=== PATIENT | male | born 1950 | race Caucasian/White ===

== ENCOUNTER 2017-03-01 06:06 | Inpatient (IN) | payer MEDICARE ==
[~2017-03-01] VITALS: Ht 185.4 cm; Wt 126.0 kg
[2017-03-01] VITALS (10 sets, daily range): BP systolic 112–173; BP diastolic 55–84; PULSE 56–74; RESP 15–24; TEMP 98.1–98.8; O2SAT 98–100
[2017-03-01] MEDS ORDERED: DEPA500T PO (06:15)
[2017-03-01] MEDS ORDERED: DULC5TAB PO (06:15)
--- NOTE | 2017-03-01 06:24 | PD ---
HPI . Head injury Chief Complaint: Seizure Time Seen by Provider: 06:17 Travel History International Travel<30 days: No Contact w/Intl Traveler<30days: No Traveled to known affect area: No History of Present Illness HPI Patient was brought to us by [facility] after possible head injury. Patient states that he was sitting on a bench and apparently fell off a bench striking his head. He states that he is perfectly fine and is ready to go home. This patient does have a seizure disorder. [id number]: Head QUALITY: No pain SEVERITY: 0/10 DURATION: Just prior to arrival ASSOCIATED SYMPTOMS: No associated symptoms PFSH Past Medical History Autoimmune Disease: No Blood Disorders: No Depression: Yes Cancer: No Cardiovascular Problems: No Endocrine: No Genitourinary: No Musculoskeletal: No Neurologic: No Psychiatric: Yes Respiratory: No Social History Alcohol Use: No Tobacco Use: Yes (1 ppd) Substance Use: No Allergies-Medications (Allergen,Severity, Reaction): Coded Allergies: Bactrim (Verified Allergy, Severe, 03/14/05) Sulfa (Verified Allergy, Severe, 07/24/03) Trimethoprim (Verified Allergy, Severe, 07/24/03) Reported Meds & Prescriptions Reported Meds & Active Scripts Active Reported Dulcolax DR (Bisacodyl) 5 Mg Tabdr Unknown Dose PO DAILY PRN Depakote DR (Divalproex Sodium) 500 Mg Tabdr 500 Mg PO BID Review of Systems Except as stated in HPI: all other systems reviewed are Neg Neurologic: Positive: Syncope Physical Exam Narrative GENERAL: Patient is awake and alert and fully oriented. He does not seem postictal. SKIN: Warm and dry. HEAD: Atraumatic. Normocephalic. He has what appears to be an abrasion/ contusion of the right eye. EYES: Pupils equal and round. Extraocular movements are intact. He has lid lag on the left. ENT: No nasal bleeding or discharge. Mucous membranes pink and moist. NECK: Trachea midline. C-spine is nontender. Full range of motion. CARDIOVASCULAR: Regular rate and rhythm. RESPIRATORY: No accessory muscle use. MUSCULOSKELETAL: No obvious deformities. No edema. NEUROLOGICAL: Awake and alert. No obvious cranial nerve deficits. Motor grossly within normal limits. Normal speech. PSYCHIATRIC: Appropriate mood and affect; insight and judgment normal. Data Data Last Documented VS Vital Signs Date Time Temp Pulse Resp B/P Pulse Ox O2 Delivery O2 Flow Rate FiO2 4/16/17 06:59 73 21 173/84 100 Partial Rebreather 03/01/17 06:[address] Brain W/O Iv Contrast(Rout) (03/01/17 06:18) Phenytoin (Dilantin) (03/01/17 06:35) Lorazepam Inj (Ativan Inj) (03/01/17 06:45) Complete Blood Count With Diff (03/01/17 06:37) Basic Metabolic Panel (Bmp) (03/01/17 06:37) Alcohol (Ethanol) (03/01/17 06:37) Drug Screen, Random Urine (03/01/17 06:37) Lorazepam Inj (Ativan Inj) (03/01/17 06:37) Labs Laboratory Tests Test 03/01/17 06:41 White Blood Count 7.9 TH/MM3 Red Blood Count 3.94 MIL/MM3 Hemoglobin 13.0 GM/DL Hematocrit 38.5 % Mean Corpuscular Volume 97.6 FL Mean Corpuscular Hemoglobin 32.9 PG Mean Corpuscular Hemoglobin 33.7 % Concent Red Cell Distribution Width 13.6 % Platelet Count 196 TH/MM3 Mean Platelet Volume 7.9 FL Neutrophils (%) (Auto) 65.0 % Lymphocytes (%) (Auto) 17.1 % Monocytes (%) (Auto) 16.8 % Eosinophils (%) (Auto) 0.8 % Basophils (%) (Auto) 0.3 % Neutrophils # (Auto) 5.1 TH/MM3 Lymphocytes # (Auto) 1.3 TH/MM3 Monocytes # (Auto) 1.3 TH/MM3 Eosinophils # (Auto) 0.1 TH/MM3 Basophils # (Auto) 0.0 TH/MM3 CBC Comment DIFF FINAL Differential Comment MDM Medical Decision Making Medical Screen Exam Complete: Yes Emergency Medical Condition: Yes Differential Diagnosis My differential diagnosis of head trauma includes but is not limited to scalp contusion, concussion, intracerebral hemorrhage. Narrative Course Patient presents by [facility] after reportedly falling and striking his head. The patient has no complaints. 6:40 AM The patient just had a 45 second long generalized tonic clonic seizure. He has been medicated with Ativan, 2 mg IV. His care will be turned over to the oncoming physician at 7 AM. Diagnosis Primary Impression: Seizure Tori Hdz MD Mar 01, 2017 06:24
[2017-03-01] MEDS ORDERED: LORazepam 2 MG/ML VIAL ONE (06:37)
[2017-03-01] MEDS ORDERED: LORazepam 2 MG/ML VIAL IV PUSH ONE ×2 (06:45→11:30)
[2017-03-01 07:05] LABS: AUTOMATED NEUTROPHIL # 5.1 TH/MM3 (1.8-7.7); BASOPHIL % 0.3 % (0.0-2.0); EOSINOPHIL # 0.1 TH/MM3 (0-0.4); EOSINOPHIL % 0.8 % (0.0-4.0); HEMATOCRIT 38.5 % (39.0-51.0); HEMO FLAGS DIFF FINAL; LYMPH % 17.1 % (9.0-44.0); LYMPHOCYTE # 1.3 TH/MM3 (1.0-4.8); MEAN CELL VOLUME 97.6 FL (80.0-100.0); MEAN CORPUSCULAR HEMOGLOBIN 32.9 PG (27.0-34.0); MEAN CORPUSCULAR HGB CONC 33.7 % (32.0-36.0); MONO % 16.8 % (0.0-8.0); PLATELET COUNT 196 TH/MM3 (150-450); RED BLOOD COUNT 3.94 MIL/MM3 (4.50-5.90); RED CELL DISTRIBUTION WIDTH 13.6 % (11.6-17.2); WHITE BLOOD COUNT 7.9 TH/MM3 (4.0-11.0)
[2017-03-01 07:22] LABS: ANION GAP 7 MEQ/L (5-15); BLOOD UREA NITROGEN 27 MG/DL (7-18); CHLORIDE 102 MEQ/L (98-107); GLOMERULAR FILTRATION RATE 60 ML/MIN (>89); POTASSIUM 4.1 MEQ/L (3.5-5.1); SODIUM (NA) 137 MEQ/L (136-145)
--- NOTE | 2017-03-01 07:37 | RADRPT ---
EXAM DATE/TIME: 03/01/2017 07:07 [place] COMPARISON: No previous studies available for comparison. INDICATIONS : Seizure. RADIATION DOSE: 69.15 CTDIvol (mGy) MEDICAL HISTORY : None SURGICAL HISTORY : None. ENCOUNTER: Initial ACUITY: 1 day PAIN SCALE: 0/10 LOCATION: cranial TECHNIQUE: Multiple contiguous axial images were obtained of the head. Using automated exposure control and adj ustment of the mA and/or kV according to patient size, radiation dose was kept as low as reasonably a chievable to obtain optimal diagnostic quality images. FINDINGS: There is no evidence for intracranial hemorrhage, mass effect, mass lesions, edema, or extra-axial fl uid collections. The visualized bony structures appear intact. The ventricles are normal size for t he patient's age. There are no signs of acute infarction for technique. There is a mucus retention c yst in the left maxillary sinus. CONCLUSION: Unremarkable study. Shaniqua Mauricio MD on March 01, 2017 at 7:34 Board Certified Radiologist. This report was verified electronically.
--- NOTE | 2017-03-01 08:06 | PD ---
Data Data Last Documented VS Vital Signs Date Time Temp Pulse Resp B/P Pulse Ox O2 Delivery O2 Flow Rate FiO2 03/01/17 06:59 73 21 173/84 100 Partial Rebreather 03/01/17 06:[address] Brain W/O Iv Contrast(Rout) (03/01/17 06:18) Phenytoin (Dilantin) (03/01/17 06:35) Lorazepam Inj (Ativan Inj) (03/01/17 06:45) Complete Blood Count With Diff (03/01/17 06:37) Basic Metabolic Panel (Bmp) (03/01/17 06:37) Alcohol (Ethanol) (03/01/17 06:37) Drug Screen, Random Urine (03/01/17 06:37) Lorazepam Inj (Ativan Inj) (03/01/17 06:37) Admit Order (Ed Use Only) (03/01/17 07:32) Labs Laboratory Tests Test 03/01/17 06:41 White Blood Count 7.9 TH/MM3 Red Blood Count 3.94 MIL/MM3 Hemoglobin 13.0 GM/DL Hematocrit 38.5 % Mean Corpuscular Volume 97.6 FL Mean Corpuscular Hemoglobin 32.9 PG Mean Corpuscular Hemoglobin 33.7 % Concent Red Cell Distribution Width 13.6 % Platelet Count 196 TH/MM3 Mean Platelet Volume 7.9 FL Neutrophils (%) (Auto) 65.0 % Lymphocytes (%) (Auto) 17.1 % Monocytes (%) (Auto) 16.8 % Eosinophils (%) (Auto) 0.8 % Basophils (%) (Auto) 0.3 % Neutrophils # (Auto) 5.1 TH/MM3 Lymphocytes # (Auto) 1.3 TH/MM3 Monocytes # (Auto) 1.3 TH/MM3 Eosinophils # (Auto) 0.1 TH/MM3 Basophils # (Auto) 0.0 TH/MM3 CBC Comment DIFF FINAL Differential Comment Sodium Level 137 MEQ/L Potassium Level 4.1 MEQ/L Chloride Level 102 MEQ/L Carbon Dioxide Level 28.0 MEQ/L Anion Gap 7 MEQ/L Blood Urea Nitrogen 27 MG/DL Creatinine 1.22 MG/DL Estimat Glomerular Filtration 60 ML/MIN Rate Random Glucose 90 MG/DL Calcium Level 9.6 MG/DL Phenytoin (Dilantin) Level LESS THAN 0.4 MCG/ML Ethyl Alcohol Level LESS THAN 3 MG/DL [facility] Medical Record Reviewed: Yes Supervised Visit with XENIA: No Narrative Course CBC & BMP Diagram 03/01/17 06:41 Phenytoin < 0.[address] is unremarkable Please refer to the outgoing physicians documentation. The patient had a seizure and was brought to the ER. A second seizure occurred lasting 45 seconds with generalized clonic tonic activity observed. He received 2 mg Ativan and has since had no seizure activity. He'll be admitted to the hospitalist service, [facility], under Dr Mcadams. His Dilantin level is 0.4. Cerebyx ordered. Mild prerenal azotemia observed; 1L NS ordered. At approximately 9:10 AM the patient was evaluated. He was snoring loudly. Gag reflex was intact. His dentures were removed. He opened his eyes and stated, "I'm ok." Diagnosis Primary Impression: Seizure Additional Impression: Subtherapeutic serum dilantin level Admitting Information Admitting Physician Requests: Admit Yanick Pollard MD Mar 01, 2017 08:06
[2017-03-01] MEDS ORDERED: SODIUM CHLORIDE 0.9% FLUSH 10 ML FLUSH IV FLUSH PRN (08:30)
[2017-03-01] MEDS ORDERED: ONDANSETRON HCL 4 MG/2 ML VIAL IVP PRN (08:30)
[2017-03-01] MEDS ORDERED: ACETAMINOPHEN 325 MG TAB PO PRN ×3 (08:30→11:00)
[2017-03-01] MEDS ORDERED: LORazepam 2 MG/ML VIAL IV PRN (08:30)
[2017-03-01] MEDS ORDERED: NALOXONE HCL 0.4 MG/ML AMP IV PRN (08:30)
[2017-03-01] MEDS: SODIUM CHLORIDE 0.9% FLUSH 10 ML FLUSH IV FLUSH SCH ×2 (08:55→21:00)
[2017-03-01] MEDS ORDERED: SODIUM CHLOR 0.9% 1000 ML INJ 1,000 ML IV ONE (09:00)
[2017-03-01] MEDS ORDERED: FOSPHENYTOIN INJ 1,000 MGPE in SODIUM CHLORIDE 0.9% INJ 50 ML IV ONE (09:15)
--- NOTE | 2017-03-01 10:45 | HHI.HP ---
[facility] Unknown Admission Diagnosis Recurrent Seizure Diagnoses: (1) Breakthrough seizure (2) Benign hypertension (3) Schizoaffective disorder Chief Complaint: Altered mental status change and seizure activity Travel History International Travel<30 Days: No Contact w/Intl Traveler <30 Da: No Traveled to Known Affected Are: No History of Present Illness 66-year-old male with a history of seizure disorder, hypertension, schizoaffective disorder and polysubstance abuse was brought to the ED for evaluation of whithness seizure activity 2 and while in emergency department patient was also observed to have another seizure. During my exam patient was alter and unable to provide any history. Per EMR report:" Patient was brought to us by [facility] after possible head injury. Patient states that he was sitting on a bench and apparently fell off a bench striking his head. He states that he is perfectly fine and is ready to go home. " Review of Systems ROS Limitations: Altered Mental Status Past Family Social History Past Medical History Seizure disorder Hypertension Schizoaffective disorder Bipolar disorder GERD Substance abuse Past Surgical History Hemorrhoidectomy Reported Medications Dulcolax DR (Bisacodyl) 5 Mg Tabdr Unknown Dose PO DAILY PRN Depakote DR (Divalproex Sodium) 500 Mg Tabdr 500 Mg PO BID Allergies: Coded Allergies: Bactrim (Verified Allergy, Severe, 03/14/05) Sulfa (Verified Allergy, Severe, 07/24/03) Trimethoprim (Verified Allergy, Severe, 07/24/03) Family History Secondary to patient's altered mental status change unable to obtain any family history Social History Alcohol Use: No Tobacco Use: Yes (1 ppd) Substance Use: No Physical Exam Vital Signs Vital Signs Date Time Temp Pulse Resp B/P Pulse Ox O2 Delivery O2 Flow Rate FiO2 03/01/17 09:32 58 24 136/71 98 Nasal Cannula 3 03/01/17 08:03 63 17 128/60 98 Nasal Cannula 3 03/01/17 06:59 73 21 173/84 100 Partial Rebreather 03/01/17 06:07 98.8 74 24 163/84 98 Physical Exam GENERAL: Profoundly asleep and difficult to arouse SKIN: No rashes, ecchymoses or lesions. Cool and dry. HEAD: Atraumatic. Normocephalic. No temporal or scalp tenderness. EYES: Pupils equal round and reactive. Extraocular motions intact. No scleral icterus. No injection or drainage. ENT: Nose without bleeding, purulent drainage or septal hematoma. Throat without erythema, tonsillar hypertrophy or exudate. Uvula midline. Airway patent. NECK: Trachea midline. No JVD or lymphadenopathy. Supple, nontender, no meningeal signs. CARDIOVASCULAR: Regular rate and rhythm without murmurs, gallops, or rubs. RESPIRATORY: Clear to auscultation. Breath sounds equal bilaterally. No wheezes , rales, or rhonchi. GASTROINTESTINAL: Abdomen soft, non-tender, nondistended. No hepato-splenomegaly , or palpable masses. No guarding. MUSCULOSKELETAL: Extremities without clubbing, cyanosis, or edema. No joint tenderness, effusion, or edema noted. No calf tenderness. Negative Homans sign bilaterally. NEUROLOGICAL: Awake and alert. Cranial nerves II through XII intact. Motor and sensory grossly within normal limits. Five out of 5 muscle strength in all muscle groups. Laboratory Laboratory Tests Test 03/01/17 06:41 White Blood Count 7.9 Red Blood Count 3.94 Hemoglobin 13.0 Hematocrit 38.5 Mean Corpuscular Volume 97.6 Mean Corpuscular Hemoglobin 32.9 Mean Corpuscular Hemoglobin 33.7 Concent Red Cell Distribution Width 13.6 Platelet Count 196 Mean Platelet Volume 7.9 Neutrophils (%) (Auto) 65.0 Lymphocytes (%) (Auto) 17.1 Monocytes (%) (Auto) 16.8 Eosinophils (%) (Auto) 0.8 Basophils (%) (Auto) 0.3 Neutrophils # (Auto) 5.1 Lymphocytes # (Auto) 1.3 Monocytes # (Auto) 1.3 Eosinophils # (Auto) 0.1 Basophils # (Auto) 0.0 CBC Comment DIFF FINAL Differential Comment Sodium Level 137 Potassium Level 4.1 Chloride Level 102 Carbon Dioxide Level 28.0 Anion Gap 7 Blood Urea Nitrogen 27 Creatinine 1.22 Estimat Glomerular Filtration 60 Rate Random Glucose 90 Calcium Level 9.6 Phenytoin (Dilantin) Level LESS THAN 0.4 Ethyl Alcohol Level LESS THAN 3 Result Diagram: 03/01/17 0641 03/01/1741 Imaging Last Impressions Head CT 03/01/17 0618 Signed Impressions: Service Date/Time: Wednesday, March 01, 2017 07:07 - CONCLUSION: Unremarkable study. Shaniqua Mauricio MD Assessment and Plan Problem List: (1) Breakthrough seizure ICD Code: G40.919 Status: Resolved (2) Subtherapeutic serum dilantin level ICD Code: R78.89 Status: Acute (3) Schizoaffective disorder ICD Code: F25.9 Status: Chronic (4) Benign hypertension ICD Code: I10 Status: Chronic Assessment and Plan 66-year-old man with Breakthrough seizure: Head CT noted and reviewed by me without any acute finding , status post Cerebyx 1 g IV 1 in ED pending consultation to neurology for antiepileptic drug therapy. However will start Keppra 500 mg by mouth twice a day and resume Depakote 500 mg 2 times a day this evening today 03/01/17. Check EEG, Ativan when necessary and place seizure precaution. Check UDS, Ammonia level and blood culture. UA negative and ETOH level wnl Benign hypertension: Currently normotensive, Vasotec when necessary DVT prophylaxis: Bilateral SCDs Code Status Full code Discussed Condition With ED physician Physician Certification 2 Midnight Certification Type: Admission for Inpatient Services Order for Inpatient Services The services are ordered in accordance with Medicare regulations or non- Medicare payer requirements, as applicable. In the case of services not specified as inpatient-only, they are appropriately provided as inpatient services in accordance with the 2-midnight benchmark. Estimated LOS (days): 2 days is the estimated time the patient will need to remain in the hospital, assuming treatment plan goals are met and no additional complications. Post-Hospital Plan: Not yet determined Problem Qualifiers (1) Schizoaffective disorder: Qualified Code: F25.9 - Schizoaffective disorder, unspecified type Jez Mcadams MD Mar 01, 2017 10:44
[2017-03-01] MEDS ORDERED: HALOPERIDOL LACTATE 5 MG/ML AMP IM ONE (11:30)
--- NOTE | 2017-03-01 13:41 | EKG ---
Date Performed: 03/01/2017 Time Performed: 06:10:50 PTAGE: 66 years EKG: Sinus rhythm WITH SINUS ARRHYTHMIA Compared to previous tracing, sinus arrhythmia is new, otherwise, no significa nt change. NORMAL ECG PREVIOUS TRACING : 04/07/2005 02.22 DOCTOR: Benny Graham Interpretating Date/Time 03/01/2017 13:39:33
--- NOTE | 2017-03-01 13:43 | PD.CONS ---
History of Present Illness Service Neurology Consult Requested By med Reason for Consult sz Primary Care Physician Unknown History of Present Illness 66-year-old male admitted for sz. pt in restraints and poor historian. Per EMR report:" Patient was brought to us by [facility] after possible head injury. Patient states that he was sitting on a bench and apparently fell off a bench striking his head. had 2nd sz, gtc in er, given ativan 2mg and loaded with iv cerebryx. no further events. seen in the past by and dx'd with polysubstance use, schizoaffective d/o. ct brain nml. depakote level 40. glucose 90. Review of Systems ROS Limitations: Altered Mental Status Past Family Social History Past Medical History Seizure disorder Hypertension Schizoaffective disorder Bipolar disorder GERD Substance abuse Past Surgical History Hemorrhoidectomy Reported Medications Dulcolax DR (Bisacodyl) 5 Mg Tabdr Unknown Dose PO DAILY PRN Depakote DR (Divalproex Sodium) 500 Mg Tabdr 500 Mg PO BID Allergies: Coded Allergies: Bactrim (Verified Allergy, Severe, 03/14/05) Sulfa (Verified Allergy, Severe, 07/24/03) Trimethoprim (Verified Allergy, Severe, 07/24/03) Family History Secondary to patient's altered mental status change unable to obtain any family history Social History Alcohol Use: No Tobacco Use: Yes (1 ppd) Substance Use: No Review of Systems All other ROS: Unable to obtain Past Family Social History Allergies: Coded Allergies: Bactrim (Verified Allergy, Severe, 03/14/05) Sulfa (Verified Allergy, Severe, 07/24/03) Trimethoprim (Verified Allergy, Severe, 07/24/03) Active Ordered Medications Current Medications Medications (Trade) Dose Ordered Sig/Kevyn Route Start Time Stop Time Status Last Admin (NS Flush) 2 ml UNSCH PRN IV FLUSH 03/01/17 08:30 (NS Flush) 2 ml BID IV FLUSH 03/01/17 09:00 (Tylenol) 650 mg Q4H PRN PO 03/01/17 08:30 (Zofran Inj) 4 mg Q6H PRN IVP 03/01/17 08:30 (Narcan Inj) 0.4 mg UNSCH PRN IV 03/01/17 08:30 (Ativan Inj) 2 mg Q10M PRN IV 03/01/17 08:30 (Keppra) 500 mg BID PO 03/01/17 21:00 (Tylenol) 650 mg Q4H PRN PO 03/01/17 11:00 (Depakote Dr) 500 mg BID PO 03/01/17 21:00 Exam I&O / VS Vital Signs Date Time Temp Pulse Resp B/P Pulse Ox O2 Delivery O2 Flow Rate FiO2 03/01/17 13:14 61 24 129/66 99 Room Air 03/01/17 09:32 58 24 136/71 98 Nasal Cannula 3 03/01/17 08:03 63 17 128/60 98 Nasal Cannula 3 03/01/17 06:59 73 21 173/84 100 Partial Rebreather 03/01/17 06:07 98.8 74 24 163/84 98 Exam Comments drowsy, slurred speech, ox 2, follows but inattentive, rt forehead lac, stable, face sym, localizes with all 4 ext, in restraints. no clonus, planterflexor Review/Management Diagnosis/Plan: (1) Seizure Plan: ?hx of sz depakote level subtherapeutic uds pending recs eeg mri brain tele iv depakote until tolerating po follow exam sz precautions follow exam (2) Schizoaffective disorder (3) Benign hypertension Problem Qualifiers (1) Schizoaffective disorder: Qualified Code: F25.9 - Schizoaffective disorder, unspecified type Francisco Marte MD Mar 01, 2017 13:42
[2017-03-01] MEDS: VALPROATE INJ 750 MG in SODIUM CHLORIDE 0.9% INJ 100 ML IV SCH ×2 (14:25→22:30)
[2017-03-01 14:51] LABS: MAGNESIUM 2.1 MG/DL (1.5-2.5)
[2017-03-01] MEDS ORDERED: ZIPRASIDONE MESYLATE 20 MG VIAL IM PRN (17:15)
[2017-03-01] MEDS ORDERED: LORazepam 2 MG/ML VIAL IV PUSH PRN (17:15)
[2017-03-01] MEDS ORDERED: levETIRAcetam 500 MG TAB PO SCH (21:00)
[2017-03-01] MEDS ORDERED: DIVALPROEX DR 500 MG TABEC PO SCH (21:00)
[2017-03-02] VITALS (8 sets, daily range): BP systolic 105–150; BP diastolic 65–85; PULSE 56–69; RESP 14–24; TEMP 97.5–98.2; O2SAT 97
[2017-03-02] MEDS: VALPROATE INJ 750 MG in SODIUM CHLORIDE 0.9% INJ 100 ML IV SCH (05:19)
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
[2017-03-02 09:24] LABS: AUTOMATED NEUTROPHIL # 3.3 TH/MM3 (1.8-7.7); BASOPHIL % 0.6 % (0.0-2.0); EOSINOPHIL # 0.1 TH/MM3 (0-0.4); HEMATOCRIT 37.9 % (39.0-51.0); HEMO FLAGS DIFF FINAL; LYMPH % 25.2 % (9.0-44.0); LYMPHOCYTE # 1.3 TH/MM3 (1.0-4.8); MEAN CELL VOLUME 98.2 FL (80.0-100.0); MEAN CORPUSCULAR HEMOGLOBIN 32.4 PG (27.0-34.0); MONO % 11.1 % (0.0-8.0); NEUT % 62.1 % (16.0-70.0); PLATELET COUNT 163 TH/MM3 (150-450); RED BLOOD COUNT 3.86 MIL/MM3 (4.50-5.90); RED CELL DISTRIBUTION WIDTH 13.6 % (11.6-17.2); WHITE BLOOD COUNT 5.3 TH/MM3 (4.0-11.0)
[2017-03-02] MEDS ORDERED: DIVALPROEX SODIUM E.R. 500 MG TAB PO SCH (10:00)
[2017-03-02] MEDS ORDERED: DIVALPROEX SODIUM E.R. 250 MG TAB PO SCH (10:00)
[2017-03-02] MEDS ORDERED: levETIRAcetam 500 MG TAB PO SCH (10:00)
--- NOTE | 2017-03-02 10:00 | HHI.PR ---
Subjective Remarks Follow-up breakthrough seizure 03/02/17-patient seen and examined, had no seizure activity since admission. Alert and oriented 3. Restrains to all upper extremities, lower extremities restrains were removed this a.m. Objective Vitals Vital Signs Date Time Temp Pulse Resp B/P Pulse Ox O2 Delivery O2 Flow Rate FiO2 03/02/17 09:00 68 18 150/77 03/02/17 08:00 97.5 61 24 145/85 97 03/02/17 08:00 60 03/02/17 07:00 62 14 147/71 97 03/02/17 06:00 57 03/02/17 04:00 65 03/02/17 04:00 98.0 62 20 137/74 97 03/02/17 02:00 56 03/02/17 00:00 98.2 59 18 105/65 97 03/02/17 00:00 59 03/01/17 22:00 61 03/01/17 20:00 63 03/01/17 20:00 98.1 65 18 122/74 100 03/01/17 19:00 97 Room Air 03/01/17 18:00 56 03/01/17 16:00 98.5 56 17 126/74 100 03/01/17 13:14 61 24 129/66 99 Room Air 03/01/17 12:00 56 15 112/55 99 Room Air I/O 03/01/17 03/01/17 03/01/17 03/02/17 03/02/17 03/02/17 07:00 15:00 23:00 07:00 15:00 23:00 Intake Total 480 ml 750 ml Output Total 600 ml 400 ml Balance -120 ml 350 ml Intake Oral 360 ml 620 ml IV Total 120 ml 130 ml Output Urine Total 600 ml 400 ml # Voids 2 2 # Bowel Movements 0 0 Result Diagram: 03/02/17 0904 03/01/17 0641 Imaging Last Impressions Head CT 03/01/1718 Signed Impressions: Service Date/Time: Wednesday, March 01, 2017 07:07 - CONCLUSION: Unremarkable study. Shaniqua Mauricio MD Objective Remarks GENERAL: NAD restaurant to upper extremities SKIN: Fungal rash HEAD: Normocephalic. EYES: No scleral icterus. No injection or drainage. NECK: Supple, trachea midline. No JVD or lymphadenopathy. CARDIOVASCULAR: Regular rate and rhythm without murmurs, gallops, or rubs. RESPIRATORY: Breath sounds equal bilaterally. No accessory muscle use. GASTROINTESTINAL: Abdomen soft, non-tender, nondistended. MUSCULOSKELETAL: No cyanosis, or edema. BACK: Nontender without obvious deformity. No CVA tenderness. Procedures none A/P Problem List: (1) Breakthrough seizure ICD Code: G40.919 Status: Resolved (2) Subtherapeutic serum dilantin level ICD Code: R78.89 Status: Acute (3) Schizoaffective disorder ICD Code: F25.9 Status: Chronic (4) Benign hypertension ICD Code: I10 Status: Chronic (5) Tinea cruris ICD Code: B35.6 Status: Acute Assessment and Plan 66-year-old man with Breakthrough seizure: Head CT without any acute finding, status post Cerebyx 1 g IV 1 in ED. Appreciate input from neurology and continue with Depakote 750 twice a day and Keppra 500. EEG and brain MRI pending, Ativan when necessary and place seizure precaution. Likely discharge home if both EEG and brain MRI negative Fungal rash/tinea cruris: Start Nystatin powder Benign hypertension: Start Norvasc 5 mg daily, continue Vasotec when necessary DVT prophylaxis: Bilateral SCDs Problem Qualifiers (1) Schizoaffective disorder: Qualified Code: F25.9 - Schizoaffective disorder, unspecified type Jez Mcadams MD Mar 02, 2017 10:00
[2017-03-02 10:02] LABS: ALKALINE PHOSPHATASE 46 U/L (45-117); ALT (GPT) 18 U/L (12-78); ANION GAP 7 MEQ/L (5-15); AST (GOT) 44 U/L (15-37); BICARBONATE 26.7 MEQ/L (21.0-32.0); BLOOD UREA NITROGEN 22 MG/DL (7-18); CHLORIDE 106 MEQ/L (98-107); GLOMERULAR FILTRATION RATE 85 ML/MIN (>89); POTASSIUM 4.2 MEQ/L (3.5-5.1); SODIUM (NA) 140 MEQ/L (136-145); TOTAL BILIRUBIN ADULT 0.4 MG/DL (0.2-1.0)
[2017-03-02] MEDS ORDERED: amLODIPine BESYLATE 5 MG TAB PO SCH (11:00)
[2017-03-02] MEDS ORDERED: NYSTATIN 100,000 UNIT/GM CREAM 15 GM TOPICAL SCH (11:00)
[2017-03-02] MEDS ORDERED: DEPA500T3 PO (11:17)
[2017-03-02] MEDS ORDERED: DIVA250ER PO (11:17)
[2017-03-02] MEDS ORDERED: LEVE500 PO (11:17)
--- NOTE | 2017-03-02 11:28 | PD.AMA ---
Against Medical Advice Note Discharge Disposition: Against Medical Advice AMA Statement Patient Yanick TanJr has decided to leave the hospital against medical advice. This patient has the capacity to refuse care and understands the risks of leaving, including permanent disability and/or , and has had an opportunity to ask questions about his condition. The patient has been informed that he may return for care at any time, and follow up has been arranged/advised. Jez Mcadams MD Mar 02, 2017 11:18
== END 2017-03-02 11:05 | disposition left against medical advice (07) | DRG 101 ==
LOC: NEPC 06:06 → NEDA 07:36 → N03B 15:53
PROVIDERS: ADMIT Hospitalist; ATTEND Hospitalist
DX: G40.409 Other generalized epilepsy and epileptic syndromes, not intractable, without status epilepticus (principal); S09.90XA Unspecified injury of head, initial encounter; Z78.1 Physical restraint status; I10 Essential (primary) hypertension; B35.6 Tinea cruris; F17.200 Nicotine dependence, unspecified, uncomplicated; K21.9 Gastro-esophageal reflux disease without esophagitis; F25.9 Schizoaffective disorder, unspecified; F19.10 Other psychoactive substance abuse, uncomplicated; F31.9 Bipolar disorder, unspecified; W08.XXXA Fall from other furniture, initial encounter; Z88.2 Allergy status to sulfonamides
CPT/HCPCS: 70450; 80048; 80053; 80164; 80185; 80307; 82607; 83735; 84443; 85025; 85652; 93005; 96374; J1630; J2060; J3486; J7030; Q2009